=== PATIENT | male | born 1990 | race Caucasian/White ===

== ENCOUNTER 2018-06-12 21:43 | Emergency (ER) | payer BC, OTHER ==
[~2018-06-12] VITALS: Ht 182.9 cm; Wt 74.8 kg
[2018-06-12 21:52] VITALS: BP_SYST 133
--- NOTE | 2018-06-12 22:05 | NUR ---
Patient to ER bed 4 to gown for evaluation. Side rails up. Report given to ЮЛИЯ.
--- NOTE | 2018-06-12 22:25 | NUR ---
ER at bedside examining patient.
[2018-06-12] MEDS ORDERED: NACL 0.9% 1,000 ML IV ONE (22:30)
--- NOTE | 2018-06-12 22:45 | NUR ---
# 20 gauge angiocath placed to LAC. Use of asceptic technique. Opsite placed over site. Blood return noted. Blood for lab drawn from site. Flushed with 10 cc of normal saline. No evidence of infiltration noted. Patient tolerated well.
--- NOTE | 2018-06-12 22:53 | NUR ---
PATIENT STATES HE WOKE UP THI AM WITH DIFFICULTY FOCUSING ON OBJECTS WITH HIS EYES, NOT BLURRED VISION, BUT IF THE EYES WERE MOVING. STATES HE ATE, TOOK A NAP, AND WOKE UP AND SYMPTOMS PERSISTED. FEELS LIKE HE IS DRUNK, BUT NOT DIZZY, JUST UNABLE TO MAINTAIN HIS VISION FOCUS. FEELS AFRAID TO DRIVE. DENIES ANY OTHER SYMPTOMS EXCEPT EXTREME FATIGUE.
[2018-06-12 22:58] LABS: BASOPHILS # (AUTO) 0.1 K/uL (0.0-0.2); EOSINOPHILS # (AUTO) 0.3 K/uL (0.0-0.4); EOSINOPHILS % (AUTO) 2.7 % (0.0-4.0); HEMOGLOBIN 15.7 g/dL (14.0-18.0); LYMPHOCYTES # (AUTO) 1.6 K/uL (1.0-5.5); LYMPHOCYTES % (AUTO) 13.8 % (20.5-51.5); MEAN CORPUSCULAR HEMOGLOBIN 32 pg (27-31); MEAN CORPUSCULAR HGB CONC 33 % (32-36); MEAN CORPUSCULAR VOLUME 97 fL (79.0-98.0); MONOCYTES # (AUTO) 0.6 K/uL (0.0-1.0); MONOCYTES % (AUTO) 4.8 % (1.7-9.3); NEUTROPHILS % (AUTO) 77.7 % (40.0-70.0); PLATELET COUNT (AUTO) 223 K/uL (130-430); RED BLOOD CELL COUNT(AUTO) 4.86 MIL/uL (4.2-6.2); WHITE BLOOD COUNT (AUTO) 11.6 K/uL (4.8-10.8)
[2018-06-12 23:10] LABS: ANION GAP 9 (5-15); CHLORIDE 104 mmol/L (98-107); CREATININE 0.98 mg/dL (0.55-1.30); GLUCOSE 105 mg/dL (70-99); POTASSIUM 3.5 mmol/L (3.5-5.1); SODIUM SERUM 141 mmol/L (136-145); UREA NITROGEN, BLOOD 13 mg/dL (8-21)
[2018-06-12 23:12] LABS: GFR AFRICAN AMERICAN 116 mL/min (>90)
[2018-06-12 23:14] LABS: ALANINE AMINOTRANSFERASE 20 U/L (12-78); ALBUMIN 4.2 g/dL (3.4-4.8); ASPARTATE AMINOTRANSFERASE 12 U/L (10-37); TOTAL BILIRUBIN 1.5 mg/dL (0.0-1.0)
[2018-06-12 23:16] LABS: ALCOHOL, BLOOD < 3 mg/dL (<10)
[2018-06-13 00:13] VITALS: BP_SYST 128
--- NOTE | 2018-06-13 00:22 | NUR ---
Patient given written and verbal discharge instructions and verbalizes understanding. ANTHONY PERES MD discussed with patient the results and treatment provided. Patient in stable condition. ID arm band removed. IV catheter removed intact and dressing applied, no active bleeding. Patient educated on pain management and to follow up with PMD. Pain Scale 0/10. Opportunity for questions provided and answered. Medication side effect fact sheet provided.
== END 2018-06-13 00:22 | disposition home or self-care (01) ==
LOC: SED 21:43
DX: T62.8X1A Toxic effect of other specified noxious substances eaten as food, accidental (unintentional), initial encounter (principal); R03.0 Elevated blood-pressure reading, without diagnosis of hypertension; Y92.89 Other specified places as the place of occurrence of the external cause
CPT/HCPCS: 36415; 80053; 85025; 93005; 96360; 99285; G0482; J7030